=== PATIENT | female | born 1970 | race Caucasian/White ===

== ENCOUNTER 2024-02-20 15:31 | Outpatient (CLI) | payer OTHER, SELFPAY ==
--- NOTE | ~2024-02-20 | XR_ITS ---
XR ribs LT 2V Ordering provider: Mahi Ramirez, History: . CERVICALGIA, PAIN IN L ELBOW, PLEURODYNIA . Comparison: September 09, 2016 FINDINGS: BONES: No acute left rib fracture or fracture of the visualized osseous structures. LEFT LUNG: No effusions or infiltrates. No pneumothorax. SOFT TISSUES: Normal. IMPRESSION: No left rib fracture. Reviewed, dictated and finalized at location A. IMPRESSION: No left rib fracture.
--- NOTE | ~2024-02-20 | XR_ITS ---
XR elbow LT min 3V Ordering provider: Mahi Ramirez, History: . CERVICALGIA, PAIN IN L ELBOW, PLEURODYNIA . Comparison: None. FINDINGS: BONES: No acute fracture or dislocation. JOINT SPACES: Osteophytes seen in the elbow joint area with mild osteoarthritic changes. SOFT TISSUES: Normal. No definite joint effusion. IMPRESSION: No acute osseous abnormality left elbow. Reviewed, dictated and finalized at location A.
--- NOTE | ~2024-02-20 | XR_ITS ---
XR_[id number]_CR Ordering provider: Mahi Ramirez, History: . CERVICALGIA, PAIN IN L ELBOW, PLEURODYNIA . Comparison: None. FINDINGS: VERTEBRAL BODIES: Normal height and alignment. No visible fracture or subluxation. The dens is intact . DISK SPACES: Narrowing of the disc spaces C5-C6 and C6-C7. Multilevel facet joint disease. Multilevel uncovertebral joint osteoarthritic changes. PARASPINOUS SOFT TISSUES: No prevertebral soft tissue swelling. IMPRESSION: No acute osseous abnormality cervical spine. Multilevel degenerative disc disease. Reviewed, dictated and finalized at location A.
== END 2024-02-20 15:32 ==
PROVIDERS: PCP Internal Medicine; Visit Provider Internal Medicine
DX: M25.522 Pain in left elbow (principal); R07.81 Pleurodynia; Z12.31 Encounter for screening mammogram for malignant neoplasm of breast; M50.30 Other cervical disc degeneration, unspecified cervical region
CPT/HCPCS: 71100; 72040; 73080